=== PATIENT | female | born 1975 | race Two or more races ===

== ENCOUNTER 2018-04-27 14:52 | Emergency (ER) | payer SELFPAY ==
[~2018-04-27] VITALS: Ht 154.9 cm; Wt 70.3 kg
[~2018-04-27 14:52] MED LIST: ADULT GLYCERIN1 EACH RECTAL; FLEET ENEMA133 ML RECTAL; HYDROCODON-ACE1 EA15 ORAL; NEURONTIN600 MG ORAL; NKM; PREDNISONE20 MG ORAL
[2018-04-27 15:35] LABS: APPEARANCE,URINE CLOUDY; BILIRUBIN, URINE NEGATIVE (NEGATIVE); COLOR,URINE AMBER; GLUCOSE, URINE (UA) NEGATIVE (NEGATIVE); KETONES,URINE 1+ (NEGATIVE); LEUKOCYTE ESTERASE ,URINE 1+ (NEGATIVE); NITRITE,URINE NEGATIVE (NEGATIVE); PH,URINE 5 (4.5-8.0); PROTEIN,URINE 2+ (NEGATIVE); UROBILINOGEN,URINE 1 MG/DL (0.0-1.0)
[2018-04-27 15:49] VITALS: BP 112/72
--- NOTE | 2018-04-27 16:06 | Emergency Room Report ---
History of Present Illness General Chief Complaint: General Complaint Source: Patient Present Illness HPI 42-year-old female presents emergency department complaining of urinary frequency, nausea vomiting, breast tenderness and positive urine at home. Patient states that she just had her period 3 weeks ago she states she has not entered menopause yet. Patient denies recent sexual activities. Patient also reports lower abdominal distention. Patient states she also has a history of hemorrhoids and she believes she currently has one because she noticed some bright red blood on the paper after having a bowel movement x2. Patient denies itching or pain in the rectal area she does report some "fullness." Patient denies fevers, chills, abdominal tenderness. Patient denies black tarry stools or blood in the vomit. Denies constipation or diarrhea , reports stool has been normal. Patient estimates that she vomited one time yesterday however she has been nauseated for approximately 3 days. Pt. reports having low back aches. Pt. denies rashes, erythema, or blisters on the breasts. pt. reports her breasts feel " garcia, and heavier." denies nipple d/c,or dry cracked skin. Allergies: Coded Allergies: No Known Allergies (Unverified , 10/30/13) Patient History Past Medical History: see triage record Past Surgical History: none Pertinent Family History: none Last Menstrual Period: march 06 : 8 Para: 2 Reviewed Nursing Documentation: PMH: Agreed; PSxH: Agreed Nursing Documentation-PMH Past Medical History: No History, Except For Hx Cardiac Problems: No Hx Asthma: Yes Hx Cancer: No Hx Gastrointestinal Problems: No Hx Neurological Problems: No Review of Systems All Other Systems: negative except mentioned in HPI Physical Exam Vital Signs Date Time Temp Pulse Resp B/P (MAP) Pulse Ox O2 Delivery O2 Flow Rate FiO2 04/27/18 14:59 98.5 114 18 112/72 98 Room Air 98.4 Sp02 EP Interpretation: reviewed, normal General Appearance: no apparent distress, alert, GCS 15, non-toxic Head: normocephalic, atraumatic ENT: hearing grossly normal, normal voice Neck: full range of motion Respiratory: lungs clear, normal breath sounds, no wheezing, speaking full sentences Cardiovascular #1: normal capillary refill, tachycardia Gastrointestinal: normal bowel sounds, non tender, soft, non-distended, no guarding Rectal: hemorrhoids - hemorrhoid at the 5 o'Clock position that is not thrombosed. Genitourinary: no CVA tenderness Musculoskeletal: back normal, gait/station normal, normal range of motion, non- tender Neurologic: alert, oriented x3, responsive, motor strength/tone normal, sensory intact, normal gait, speech normal, grossly normal Psychiatric: judgement/insight normal, other - pt. very talkative with rapid speech. Skin: normal color, no rash, warm/dry, well hydrated Medical Decision Making PA Attestation Dr. Welch is my supervising Physician whom patient management has been discussed with. Diagnostic Impression: Primary Impression: Urinary tract infection Qualified Codes: N30.00 - Acute cystitis without hematuria ER Course 42-year-old female presents emergency department complaining of urinary frequency, nausea vomiting, breast tenderness and positive urine at home. Patient states that she just had her period 3 weeks ago she states she has not entered menopause yet. Patient denies recent sexual activities. Patient also reports lower abdominal distention. Patient states she also has a history of hemorrhoids and she believes she currently has one because she noticed some bright red blood on the paper after having a bowel movement x2. Patient denies itching or pain in the rectal area she does report some "fullness." Patient denies fevers, chills, abdominal tenderness. Patient denies black tarry stools or blood in the vomit. Denies constipation or diarrhea , reports stool has been normal. Patient estimates that she vomited one time yesterday however she has been nauseated for approximately 3 days. Pt. reports having low back aches. Pt. denies rashes, erythema, or blisters on the breasts. pt. reports her breasts feel " garcia, and heavier." denies nipple d/c,or dry cracked skin. Ddx considered but are not limited to UTi , Pyelo, STI, Stone, Cystitis, , hemorrhoids, GI bleed just to name a few. Vital signs: Tachycardic, pt. is afebrile H&PE are most consistent with UTI - no CVA tenderness, pt. does have hemorrhoid at the 5 o'Clock position that is not thrombosed. Pt. has good cap refill and does not have pale palms or nail beds. ORDERS: - UA labs are attached : Positive for urinary infection -Urine HCG: Negative ED INTERVENTIONS: None required at this time. DISCHARGE: At this time pt. is stable for d/c to home. Will provide printed patient care instructions, and any necessary prescriptions. Care plan and follow up instructions have been discussed with the patient prior to discharge. Labs Test 04/27/18 15:00 Urine Color [place] Urine Appearance Cloudy Urine pH 5 (4.5-8.0) Urine Specific [place] 1.025 (1.005-1.035) Urine Protein 2+ (NEGATIVE) Urine Glucose (UA) Negative (NEGATIVE) Urine Ketones 1+ (NEGATIVE) Urine Occult Blood 2+ (NEGATIVE) Urine Nitrite Negative (NEGATIVE) Urine Bilirubin Negative (NEGATIVE) Urine Ictotest Negative Urine Urobilinogen 1 MG/DL (0.0-1.0) Urine Leukocyte Esterase 1+ (NEGATIVE) Urine RBC 0-2 /HPF (0 - 2) Urine WBC 10-15 /HPF (0 - 2) Urine Squamous Epithelial Cells Many /LPF (NONE/OCC) Urine Bacteria Moderate /HPF (NONE) Urine HCG, Qualitative Negative (NEGATIVE) Last Vital Signs Date Time Temp Pulse Resp B/P (MAP) Pulse Ox O2 Delivery O2 Flow Rate FiO2 04/27/18 15:49 98.4 103 18 112/72 98 Room Air 98.4 Disposition: HOME, SELF-CARE Condition: Stable Scripts Phenazopyridine Hcl* (PYRIDIUM*) 200 Mg Tablet 200 MG ORAL THREE TIMES A DAY for 3 Days, #9 TAB 0 Refills Prov: Zakiya Vega 04/27/18 Trimethoprim/Sulfamethoxazole 160/800* (BACTRIM DS TABLET*) 1 Each Tablet 1 TAB ORAL TWICE A DAY for 7 Days, #14 TAB Prov: Zakiya Vega 04/27/18 Referrals: NOT CHOSEN IPA/,REFERRING (PCP) Patient Instructions: Urinary Tract Infection, [id number] Additional Instructions: Take medications as directed. Follow up with a Primary Care Provider in 3-5 days, even if your symptoms have resolved. --Please review list of primary care clinics, if you do not already have a primary care provider Return sooner to ED if new symptoms occur, or current symptoms become worse. - Please note that this Emergency Department Report was dictated using Dr. Jerry's [employer] in diagnostic radiology technology software, occasionally this can lead to erroneous entry secondary to interpretation by the dictation equipment. Zakiya Vega Apr 27, 2018 16:06
[2018-04-27] MEDS ORDERED: BACTRIM DS TAB1 EAC1 ORAL (16:07)
[2018-04-27] MEDS ORDERED: PHENAZOPYRIDIN200 MG ORAL (16:07)
[2018-04-27 16:23] VITALS: BP 112/72
== END 2018-04-27 16:06 | disposition home or self-care (01) ==
LOC: EDBD 14:52 → EMR 15:20
DX: N39.0 Urinary tract infection, site not specified (principal); J45.909 Unspecified asthma, uncomplicated
CPT/HCPCS: 81003; 81025; 87086; 99284